=== PATIENT | female | born 1950 | race African-American/Black ===

== ENCOUNTER 2018-09-04 09:46 | Inpatient (IN) | payer OTHER ==
[2018-08-26 11:59] VITALS: BMI 32.7
[2018-09-04] MEDS ORDERED: MIDAZOLAM HCL 2 MG/2 ML SINGLE DOSE VIAL ONE (11:53)
[2018-09-04] MEDS ORDERED: BUPIVACAINE LIPOSOME/PF (EXPAREL) 266 MG/20 ML VIAL ONE (11:53)
[2018-09-04] MEDS ORDERED: VANCOMYCIN 1,000 MG VIAL (RESTRICTED TO ID ONLY) ONE (12:06)
[2018-09-04] MEDS ORDERED: PROPOFOL 20 ML ONE ×2 (14:31)
[2018-09-04] MEDS ORDERED: BENZOIN/ALOE VERA/STORAX/TOLU 58 ML BOTTLE ONE (15:28)
[2018-09-04] MEDS ORDERED: MECLIZINE HCL 25 MG TABLET (FP) PO PRN (16:03)
[2018-09-04] MEDS ORDERED: ALBUTEROL SO4 8 GM HFA INHALER IH PRN (16:03)
[2018-09-04] MEDS ORDERED: MAGNESIUM HYDROX 2400MG/30ML ORAL SUSPENSION 30 ML CUP PO PRN (16:04)
[2018-09-04] MEDS ORDERED: MAG HYDROX/AL HYDROX/SIMETH 30 ML UNIT-DOSE CUP PO PRN (16:04)
--- NOTE | 2018-09-04 16:10 | PN ---
Progress Note (short form) - Note Progress Note: 67F s/p LEFT total knee replacement POD #0. -Pain control. -DVT PPx: -Chemical: ASA 325mg PO BID x 6 weeks. -Mechanical: DEMETRIUS's, SCD's. -Incentive spirometry q15 min. -PT/OT/Rehab, OOB. -WBAT LLE. -Antibiotics: Ancef x 2 post op doses. -f/u post-op trial of void: 11pm MAX. -f/u drain output. -Diet as tolerated. -Keep dressing clean & dry. -Care per medical hospitalist team. -f/u [facility] [place] office 09/13/2018; call for appointment; . -Will follow. Joseph Goyal MD (Orthopaedic Surgery).
--- NOTE | 2018-09-04 16:11 | OP ---
Operative Note - Note: Operative Date: 09/04/18 Pre-Operative Diagnosis: Left knee DJD Operation: Left TKA Implants: [place] Triathlon. Femur - 3. Tibia - 4. Poly - 11mm, TS. Patella - 27mm, symmetric Surgeon: Joseph Goyal Webfed Offset Press Operator: Timothy Goyal Anesthesiologist/DEMURRAGE MAN: Renny Marie Anesthesia: Spinal Specimens Removed: Bone, soft tissue Estimated Blood Loss (mls): 0 Drains & Tubes with Location: 1 x deep HemoVac Fluid Volume Replaced (mls): 1,000 Operative Report Dictated: Yes
[2018-09-04] MEDS ORDERED: LACTATED RINGERS SOLUTION 1,000 ML IV SCH (16:15)
[2018-09-04] MEDS: ACETAMINOPHEN 325 MG TABLET (FP) PO SCH ×2 (17:15→23:48)
[2018-09-04] MEDS ORDERED: oxyCODONE HCL 5 MG TABLET PO PRN (17:16)
[2018-09-04] MEDS ORDERED: predniSONE 20 MG TABLET (UD) PO PRN (17:30)
[2018-09-04] MEDS: oxyCODONE HCL 5 MG TABLET PO PRN ×3 (17:51→23:48)
[2018-09-04] MEDS: ONDANSETRON 4 MG/2 ML VIAL IVPUSH PRN (17:52)
--- NOTE | 2018-09-04 18:19 | OP ---
DATE OF OPERATION: 09/04/2018 SURGEON: Joseph Goyal M.D. HEALTH EDUCATOR: Timothy Goyal M.D. PREOPERATIVE DIAGNOSIS: Tricompartmental osteoarthritis left knee, fixed valgus, fixed flexed knee. POSTOPERATIVE DIAGNOSIS: Tricompartmental osteoarthritis left knee, fixed valgus, fixed flexed knee. OPERATION PERFORMED: Left posterior stabilized total knee arthroplasty cemented ([place]) subvastus approach. ANESTHESIA: Conscious sedation with peripheral block and spinal. TOURNIQUET TIME: 90 minutes DESCRIPTION OF PROCEDURE: Patient correctly identified, brought to the operating room. Left lower extremity was prepped, pre-draped in the routine manner with Betadine scrub solution, wiped off with alcohol, DuraPrep was applied. Imaging was available for intraoperative evaluation. Timeout was called. Preoperative evaluation under anesthesia revealed a fixed valgus knee of about 20 degrees. This was viewed as a fixed flexed deformity 3 degrees. Midline incision utilized. The skin incision was taken through the subcutaneous tissue to the actual quadriceps muscle. The epimysium was identified, and the entire epimysium on the superficial surface of the vastus medialis was dissected off the muscle. At that point the dissection was extended from the medial aspect of the tibial tubercle proximally to the joint line and then coursing medially right down to the medial aspect of linea aspera, the actual vastus was lifted gently off the intramuscular septum and linea aspera itself. This was done under direct vision. Small vessels were diathermized with bipolar Bovie. The superior pouch sleeve was transected, a blunt Hohmann was placed and the patella was shifted laterally. Two towel clip clamps were utilized to hold the patella, and the patella cut was made from quadriceps tendon to patellar ligament, from medial to lateral with the patella held vertically up. The jig was applied for a 27-mm patellar button, and the lug holes were appropriately drilled. Once this had been performed, the tibia was subluxed gently forward. Hohmann retractor was placed posteriorly as well as laterally and medially. The patellar ligament was held out of harm's way. The tibial cut was made with the appropriate extramedullary jig device and once the cut had been made, the measurement was for a size 4 tibial component. The number 4 tibial component enabled us to go ahead and prepare the tibial surface immediately with the appropriate drill and appropriate flanged re-broached cuts into the proximal tibia. The positioning of the implant was in a line in accordance with the tibial tubercle. The femur was attended to by drilling and entering the medullary canal. The saw for the distal jig was inserted and using the Five minutes jig system, the cuts of the bone of the femur cut to receive a size 3 posterior stabilized Triathlon femoral component. Once all bone cuts had been made, flexion/extension gaps were found to be even at 11 mm. The lug holes for the femoral component were inserted. Size 3 femoral component was opted for finally. Trialing revealed excellent positioning of the femur, the tibia, appropriately the patella tracking was normal with a negative thumb test test. It was opted to go ahead with cementing at this point. The bone bed was thoroughly lavaged with pulse lavage. A bone plug had been made and seated into intramedullary canal of the femur. The bone bed was dry. Cementing was in one stage, tibia followed by femur followed by patella. An 11 spacer was placed in the tibial component, and the knee held in extension while the cement cured. All extraneous cement was removed and washed out of the knee. A size 11 TS polyethylene posterior stabilized implant was inserted. The knee was completely stable and the rest of range of motion and tracking of patella was neutral and normal with negative thumb test test. Closure: Quadriceps tendon and medial retinaculum tissue with number 1 Vicryl, subcutaneous 1 and 2-0 Vicryl, skin 3-0 Monocryl with Steri-Strips. Drainage: One 8-inch Hemovac to the medial side of the distal femur. Operation went well, no complications. MD NOA Duran/[id number]
[2018-09-04] MEDS: SENNOSIDES/DOCUSATE COMBO (SENNA PLUS) TABLET (UD) PO SCH (21:22)
[2018-09-04] MEDS: ASPIRIN 325 MG TABLET PO SCH (21:22)
[2018-09-04] MEDS: ATORVASTATIN CA 10 MG TABLET (FP) PO SCH (21:22)
[2018-09-04] MEDS: CEFAZOLIN 2 GM in DEXTROSE 5%-WATER - 50 ML IVPB SCH (21:23)
[2018-09-04] MEDS: MONTELUKAST NA 10 MG TABLET PO SCH (21:23)
[2018-09-05] MEDS: CEFAZOLIN 2 GM in DEXTROSE 5%-WATER - 50 ML IVPB SCH (02:44)
[2018-09-05] MEDS: oxyCODONE HCL 5 MG TABLET PO PRN ×3 (03:30→19:22)
[2018-09-05] MEDS: ACETAMINOPHEN 325 MG TABLET (FP) PO SCH ×4 (05:43→19:11)
[2018-09-05 07:53] LABS: HEMATOCRIT 35.9 % (32.4-45.2); HEMOGLOBIN 11.5 GM/dl (10.7-15.3); MCH 28.3 pg (25.7-33.7); MEAN CELL VOLUME 88.2 fl (80-96); MEAN PLT VOLUME 11.3 fl (7.5-11.1); PLATELET COUNT 167 K/MM3 (134-434); RBC 4.07 M/mm3 (3.60-5.2); RDW 16.5 % (11.6-15.6); WHITE BLOOD COUNT 9.3 K/mm3 (4.0-10.8)
[2018-09-05] MEDS: metFORMIN HCL 500 MG TABLET (FP) PO SCH (08:00)
[2018-09-05 08:24] LABS: ANION GAP 10 MMOL/L (8-16); BLOOD UREA NITROGEN 15 mg/dl (7-18); CALCIUM 9.3 mg/dl (8.5-10); CHLORIDE 103 mmol/L (98-107); CO2 27 mmol/L (21-32); GLUCOSE,RANDOM 133 mg/dl (74-106); POTASSIUM 3.3 mmol/L (3.5-5.1); SODIUM 140 mmol/L (136-145)
--- NOTE | 2018-09-05 08:49 | PN ---
Progress Note (short form) - Note Progress Note: POD #1 s/p LT TKR Alert. Sitting in chair at bedside. Hasn't ambulated with PT yet. Using ice pack as instructed. C/o incisional tenderness. Adequate pain control via meds ordered. Denies n/v/f/c, CP, palpitations, SOB or JOHNSON. Last Vital Signs Temp Pulse Resp BP Pulse Ox 99.3 F 76 19 152/70 96 09/05/18 06:00 09/05/18 06:00 09/05/18 08:05 09/05/18 06:00 09/05/18 08:05 CBC, BMP 09/05/18 07:25 09/05/18 07:25 Hemovac 09/04/18 09/05/18 09/05/18 09/05/18 22:00 00:14 04:29 06:00 Drain 5 40 80 40 Gen: nad LE: RLE unremarkable. Lt knee dressing c/d/i. ice pack. Flexion/Extension. SCDs bilat A/P s/p Lt TKR secondary to DJD - Pain control. -DVT PPx: -Chemical: ASA 81 mg po BID x 6 weeks -Mechanical: DEMETRIUS's, SCD's -Incentive Spirometry. -PT/OT/Rehab, OOB. -WBAT LLE -f/u drain output -replete K -cbc in AM -Discharge planning: f/u [facility] [place] office extrusion engineer for appointment :
--- NOTE | 2018-09-05 08:50 | CONSULT ---
Consultation: REQUESTING PROVIDER: Dr. Goyal CONSULT REQUEST: We have been asked to medically evaluate this patient for post- op management. HISTORY OF PRESENT ILLNESS: This is a 67 year old female with a PMHX of HTN,HDL,DM, asthma, breast CA , s/p bilateral mastectomy and chronic back pain,who was referred by ortho Dr. Goyal for Left knee sx. SHX Rt Hip sx Bilateral mastectomy with reconstruction Bilateral arthroscopic knee sx Bilateral rotated cuff sx REVIEW OF SYSTEMS: CONSTITUTIONAL: Absent: fever, chills, diaphoresis, generalized weakness, malaise, loss of appetite, weight change HEENT: Absent: rhinorrhea, nasal congestion, throat pain, throat swelling, difficulty swallowing, mouth swelling, ear pain, eye pain, visual changes CARDIOVASCULAR: Absent: chest pain, syncope, palpitations, irregular heart rate, lightheadedness , peripheral edema RESPIRATORY: Absent: cough, shortness of breath, dyspnea with exertion, orthopnea, wheezing, stridor, hemoptysis GASTROINTESTINAL: Absent: abdominal pain, abdominal distension, nausea, vomiting, diarrhea, constipation, melena, hematochezia GENITOURINARY: Absent: dysuria, frequency, urgency, hesitancy, hematuria, flank pain, genital pain MUSCULOSKELETAL: Let knee pain Absent: myalgia, arthralgia, joint swelling, back pain, neck pain SKIN: Absent: rash, itching, pallor HEMATOLOGIC/IMMUNOLOGIC: Absent: easy bleeding, easy bruising, lymphadenopathy, frequent infections ENDOCRINE: Absent: unexplained weight gain, unexplained weight loss, heat intolerance, cold intolerance NEUROLOGIC: Absent: headache, focal weakness or paresthesias, dizziness, unsteady gait, seizure, mental status changes, bladder or bowel incontinence PSYCHIATRIC: Absent: anxiety, depression, suicidal or homicidal ideation, hallucinations. PHYSICAL EXAMINATION Vital Signs - 24 hr 09/04/18 09/04/18 09/04/18 10:40 10:42 15:59 Temperature 97.9 F 98.4 F Pulse Rate 65 69 Respiratory 20 17 Rate Blood Pressure 142/83 145/66 O2 Sat by Pulse 98 100 Oximetry (%) 09/04/18 09/04/18 09/04/18 16:00 16:05 16:10 Temperature Pulse Rate 65 67 58 L Respiratory 15 16 14 Rate Blood Pressure 152/68 149/69 150/75 O2 Sat by Pulse 100 100 100 Oximetry (%) 09/04/18 09/04/18 09/04/18 16:15 16:30 16:45 Temperature Pulse Rate 61 59 L 56 L Respiratory 14 12 12 Rate Blood Pressure 162/74 163/74 155/62 O2 Sat by Pulse 100 100 100 Oximetry (%) 09/04/18 09/04/18 09/04/18 17:00 17:15 17:35 Temperature 98.4 F 97.7 F Pulse Rate 61 62 71 Respiratory 12 13 16 Rate Blood Pressure 144/72 151/73 170/66 O2 Sat by Pulse 100 100 Oximetry (%) 09/04/18 09/05/18 09/05/18 22:00 02:00 06:00 Temperature 99.3 F 100.0 F H 99.3 F Pulse Rate 78 91 H 76 Respiratory 19 18 19 Rate Blood Pressure 152/61 165/71 152/70 O2 Sat by Pulse 100 96 Oximetry (%) 09/05/18 08:05 Temperature Pulse Rate Respiratory 19 Rate Blood Pressure O2 Sat by Pulse 96 Oximetry (%) GENERAL: Awake, alert, and fully oriented, in no acute distress, OOB HEAD: Normal with no signs of trauma. EYES: Pupils equal, round and reactive to light, extraocular movements intact, sclera anicteric, conjunctiva clear. No lid lag. EARS, NOSE, THROAT: Ears normal, nares patent, oropharynx clear without exudates. Moist mucous membranes. NECK: Normal range of motion, supple without lymphadenopathy, JVD, or masses. LUNGS: Breath sounds equal, clear to auscultation bilaterally. No wheezes, and no crackles. No accessory muscle use. HEART: Regular rate and rhythm, normal S1 and S2 without murmur, rub or gallop. ABDOMEN: Soft, nontender, not distended, normoactive bowel sounds, no guarding, no rebound, no masses. No hepatomegaly or splenomegaly. MUSCULOSKELETAL: Normal range of motion at all joints. No bony deformities or tenderness. No CVA tenderness. UPPER EXTREMITIES: 2+ pulses, warm, well-perfused. No cyanosis. No clubbing. Cap refill <2 seconds. No peripheral edema. LOWER EXTREMITIES: 2+ pulses, warm, well-perfused. No calf tenderness. No peripheral edema. s/p Left knee sx, dsg and drain intact. NEUROLOGICAL: Cranial nerves II-XII intact. Normal speech. Normal gait. PSYCHIATRIC: Cooperative. Good eye contact. Appropriate mood and affect. SKIN: Warm, dry, normal turgor, no rashes or lesions noted. Laboratory Results - last 24 hr 09/04/18 09/04/18 09/05/18 10:33 16:16 07:25 WBC 9.3 RBC 4.07 Hgb 11.5 Hct 35.9 MCV 88.2 MCH 28.3 MCHC 32.0 RDW 16.5 H Plt Count 167 MPV 11.3 H POC Glucometer 122 129 Active Medications Generic Name Dose Route Start Last Admin Trade Name Freq PRN Reason Stop Dose Admin Acetaminophen 650 mg 09/05/18 00:00 09/05/18 05:43 Tylenol - PO 09/07/18 00:00 650 mg Q6H MAURI Administration Al Hydroxide/Mg Hydroxide 30 ml 09/04/18 16:04 Mylanta Oral Suspension - PO Q4H PRN DYSPEPSIA Albuterol Sulfate 2 puff 09/04/18 16:03 Ventolin Hfa Inhaler - IH Q4H PRN WHEEZING Aspirin 325 mg 09/04/18 22:00 09/04/18 21:22 Asa - PO 325 mg BID MAURI Administration Atorvastatin Calcium 10 mg 09/04/18 22:00 09/04/18 21:22 Lipitor - PO 10 mg HS MAURI Administration Clonidine HCl 0.3 mg 09/05/18 10:00 Catapres Tts Patch - TD Th@1000 MAURI Diltiazem HCl 240 mg 09/05/18 10:00 Cardizem Cd - PO DAILY MAURI HCTZ/Losartan Potassium 2 tab 09/05/18 10:00 Hyzaar - PO DAILY MAURI Hydralazine HCl 100 mg 09/05/18 10:00 Apresoline - PO DAILY MAURI Magnesium Hydroxide 30 ml 09/04/18 16:04 Milk Of Magnesia - PO PRN PRN CONSTIPATION Meclizine HCl 25 mg 09/04/18 16:03 Antivert - PO DAILY PRN VERTIGO Metformin HCl 500 mg 09/05/18 07:00 09/05/18 08:00 Glucophage - PO 500 mg ACBK MAURI Administration Montelukast Sodium 10 mg 09/04/18 22:00 09/04/18 21:23 Singulair - PO 10 mg HS MAURI Administration Nebivolol 5 mg 09/05/18 10:00 Bystolic - PO DAILY MAURI Ondansetron HCl 4 mg 09/04/18 16:04 09/04/18 17:52 Zofran Injection IVPUSH 4 mg Q6H PRN Administration NAUSEA Oxycodone HCl 5 mg 09/04/18 17:16 Roxicodone - PO Q3H PRN PAIN LEVEL 1-5 Oxycodone HCl 10 mg 09/04/18 17:16 09/05/18 03:30 Roxicodone - PO 10 mg Q3H PRN Administration PAIN LEVEL 6-10 Pantoprazole Sodium 40 mg 09/05/18 10:00 Protonix - PO DAILY MAURI Prednisone 20 mg 09/04/18 17:30 Deltasone - PO DAILY PRN ASTHMA Pregabalin 75 mg 09/05/18 10:00 Lyrica - PO DAILY MAURI Senna/Docusate Sodium 1 tablet 09/04/18 22:00 09/04/18 21:22 Pericolace - PO 1 tablet BID MAURI Administration Left knee sx: reviewed ASSESSMENT/PLAN: This is a 67 year old female with a PMHX of HTN,HDL, DM, asthma, breast CA,s/p bilateral mastectomy,s/p for Left knee sx on 09/04/18. *S/P Left knee sx- POD#1 - pain control -management per sx -WBAT LLE - PT eval -encouraged to use Incentive Spirometer - anti-emetics * Hypokalemia - K replaced - will f/u on [employer] in am *HTN - will cont on home meds - will monitor BP closely * DM - FS AC& HS - Lispro sliding scale - on Metformin *Asthma - will cont on Singulair, Albuterol INH PRN * Chronic back pain - will cont on Lyrica * HDL - on Statin * VTE prophylaxis: ASA 325mg BID Dispo: We will continue to follow the patient. Thank you for this consultative opportunity. Visit type - Emergency Visit Emergency Visit: No - New Patient This patient is new to me today: No - Critical Care Critical Care patient: No
[2018-09-05] MEDS ORDERED: POTASSIUM CHLORIDE TABS 20 MEQ TABLET.ER (FP) PO ONE (09:10)
[2018-09-05] MEDS ORDERED: PT OWN MED DRAWER 7, Y5N ONE (09:11)
[2018-09-05] MEDS: PREGABALIN 25 MG CAPSULE PO SCH (09:12)
[2018-09-05] MEDS: ASPIRIN 325 MG TABLET PO SCH ×2 (09:13→21:21)
[2018-09-05] MEDS: PANTOPRAZOLE 40 MG TABLET (FP) PO SCH (09:13)
[2018-09-05] MEDS: SENNOSIDES/DOCUSATE COMBO (SENNA PLUS) TABLET (UD) PO SCH ×2 (09:13→21:21)
[2018-09-05] MEDS: NEBIVOLOL 5 MG TABLET (FP) PO SCH (09:13)
[2018-09-05] MEDS: LOSARTAN 50MG/HCTZ 12.5MG 1 TAB (FP) PO SCH (09:13)
[2018-09-05] MEDS: hydrALAZINE HCL 50 MG TABLET (FP) PO SCH (09:13)
[2018-09-05] MEDS: ONDANSETRON 4 MG/2 ML VIAL IVPUSH PRN (09:59)
[2018-09-05] MEDS ORDERED: PATIENT'S OWN MEDICATION (NON-FORMULARY) (Losartan/Hydrochlorothiazide [Losartan-Hctz 100- PO SCH (10:00)
[2018-09-05] MEDS ORDERED: PATIENT'S OWN MEDICATION (NON-FORMULARY) (Hydralazine Hcl [Hydralazine Hcl] 100 MG) PO SCH (10:00)
[2018-09-05] MEDS ORDERED: cloNIDine-TTS 0.3 MG /24 HRS PATCH.TDWK TD SCH (10:00)
[2018-09-05] MEDS: INSULIN SLIDING SCALE (NOVOLOG) 1 VIAL SQ SCH ×3 (11:57→21:42)
--- NOTE | 2018-09-05 12:02 | PN ---
Progress Note, Physician Chief Complaint: s/p left TKA under spinal anesthesia History of Present Illness: post op day one with peripheral nerve block for post op pain control. - Current Medication List Current Medications: Active Medications Acetaminophen (Tylenol -) 650 mg PO Q6H [facility] Stop: 09/07/18 00:00 Last Admin: 09/05/18 05:43 Dose: 650 mg Al Hydroxide/Mg Hydroxide (Mylanta Oral Suspension -) 30 ml PO Q4H PRN PRN Reason: DYSPEPSIA Albuterol Sulfate (Ventolin Hfa Inhaler -) 2 puff IH Q4H PRN PRN Reason: WHEEZING Aspirin (Asa -) 325 mg PO BID [facility] Last Admin: 09/05/18 09:13 Dose: 325 mg Atorvastatin Calcium (Lipitor -) 10 mg PO [facility] Last Admin: 09/04/18 21:22 Dose: 10 mg Clonidine HCl (Catapres Tts Patch -) 0.3 mg TD Mo@1000 [facility] Diltiazem HCl (Cardizem Cd -) 240 mg PO DAILY [facility] Last Admin: 09/05/18 09:14 Dose: 240 mg HCTZ/Losartan Potassium (Hyzaar -) 2 tab PO DAILY [facility] Last Admin: 09/05/18 09:13 Dose: 2 tab Hydralazine HCl (Apresoline -) 100 mg PO DAILY [facility] Last Admin: 09/05/18 09:13 Dose: 100 mg Insulin Aspart (Novolog Vial Sliding Scale -) 1 vial SQ [facility]; Protocol Last Admin: 09/05/18 11:57 Dose: 2 units Magnesium Hydroxide (Milk Of Magnesia -) 30 ml PO PRN PRN PRN Reason: CONSTIPATION Meclizine HCl (Antivert -) 25 mg PO DAILY PRN PRN Reason: VERTIGO Metformin HCl (Glucophage -) 500 mg PO ACBK [facility] Last Admin: 09/05/18 08:00 Dose: 500 mg Montelukast Sodium (Singulair -) 10 mg PO HS [facility] Last Admin: 09/04/18 21:23 Dose: 10 mg Nebivolol (Bystolic -) 5 mg PO DAILY [facility] Last Admin: 09/05/18 09:13 Dose: 5 mg Ondansetron HCl (Zofran Injection) 4 mg IVPUSH Q6H PRN PRN Reason: NAUSEA Last Admin: 09/05/18 09:59 Dose: 4 mg Oxycodone HCl (Roxicodone -) 5 mg PO Q3H PRN PRN Reason: PAIN LEVEL 1-5 Oxycodone HCl (Roxicodone -) 10 mg PO Q3H PRN PRN Reason: PAIN LEVEL 6-10 Last Admin: 09/05/18 09:13 Dose: 10 mg Pantoprazole Sodium (Protonix -) 40 mg PO DAILY [facility] Last Admin: 09/05/18 09:13 Dose: 40 mg Prednisone (Deltasone -) 20 mg PO DAILY PRN PRN Reason: ASTHMA Pregabalin (Lyrica -) 75 mg PO DAILY [facility] Last Admin: 09/05/18 09:12 Dose: 75 mg Senna/Docusate Sodium (Pericolace -) 1 tablet PO BID [facility] Last Admin: 09/05/18 09:13 Dose: 1 tablet - Objective Vital Signs: Vital Signs Temperature 98.0 F 09/05/18 10:00 Pulse Rate 77 09/05/18 10:00 Respiratory Rate 19 09/05/18 10:00 Blood Pressure 176/77 H 09/05/18 10:00 O2 Sat by Pulse Oximetry (%) 95 09/05/18 10:00 Constitutional: Yes: Well Nourished Cardiovascular: Yes: WNL Respiratory: Yes: WNL Gastrointestinal: Yes: Vomiting Labs: CBC, BMP 09/05/18 07:25 09/05/18 07:25 Assessment/Plan Patient is nauseated and vomiting. Pain is 10/10, does not want to take more opioids because of nausea and drowsiness. Will order other antiemetics, and ofirmev for adjuvant analgesia. Otherwise, dept of anesthesia will sign off care at this time
[2018-09-05] MEDS ORDERED: DEXAMETHASONE SOD PHOSPHATE 4 MG/1 ML VIAL IVPUSH ONE (12:20)
[2018-09-05] MEDS ORDERED: ACETAMINOPHEN 1000 MG/100 ML VIAL (NON FORMULARY) IVPB ONE (12:20)
[2018-09-05] MEDS ORDERED: PROMETHAZINE HCL 25 MG/1 ML VIAL IVPB ONE (14:15)
[2018-09-05] MEDS: ATORVASTATIN CA 10 MG TABLET (FP) PO SCH (21:21)
[2018-09-05] MEDS: MONTELUKAST NA 10 MG TABLET PO SCH (21:21)
[2018-09-06] MEDS: ACETAMINOPHEN 325 MG TABLET (FP) PO SCH ×3 (00:11→14:18)
[2018-09-06] MEDS: metFORMIN HCL 500 MG TABLET (FP) PO SCH (06:37)
[2018-09-06] MEDS: INSULIN SLIDING SCALE (NOVOLOG) 1 VIAL SQ SCH ×2 (06:38→14:17)
[2018-09-06] MEDS: oxyCODONE HCL 5 MG TABLET PO PRN ×3 (06:39→12:30)
--- NOTE | 2018-09-06 08:07 | DS ---
Physical Exam: SUBJECTIVE: Patient seen and examined this am and has no complaints of CP, SOB. OOB and ambulating with PT. Tolerating a diet. OBJECTIVE: Vital Signs Temperature 98.9 F 09/06/18 06:00 Pulse Rate 67 09/06/18 06:00 Respiratory Rate 18 09/06/18 06:00 Blood Pressure 136/53 L 09/06/18 06:00 O2 Sat by Pulse Oximetry (%) 99 09/06/18 06:00 WILD: 150 ml/40 and 60ml-serosangrenous PHYSICAL EXAM GENERAL: The patient is awake, alert, and fully oriented, in no acute distress. LUNGS: Breath sounds equal, clear to auscultation bilaterally. HEART: Regular rate and rhythm. ABDOMEN: Soft, nontender, nondistended. EXTREMITIES: no calf tenderness of swelling noted b/l. NEUROLOGICAL: Normal speech, gait not observed. 5/5 dorsi/plantar flexion right leg. 4/5 dorsi/plantar flexion left leg. Dressing c/d/i to the left leg. Drain removed today with tip intact. Reapplied the solis wrap LABS CBC,CMP WBC 9.3 K/mm3 (4.0-10.8) 09/05/18 07:25 RBC 4.07 M/mm3 (3.60-5.2) 09/05/18 07:25 Hgb 11.5 GM/dl (10.7-15.3) 09/05/18 07:25 Hct 35.9 % (32.4-45.2) 09/05/18 07:25 MCV 88.2 fl (80-96) 09/05/18 07:25 MCH 28.3 pg (25.7-33.7) 09/05/18 07:25 MCHC 32.0 g/dl (32.0-36.0) 09/05/18 07:25 RDW 16.5 % (11.6-15.6) H 09/05/18 07:25 Plt Count 167 K/MM3 (134-434) 09/05/18 07:25 MPV 11.3 fl (7.5-11.1) H 09/05/18 07:25 Sodium 140 mmol/L (136-145) 09/05/18 07:25 Potassium 3.3 mmol/L (3.5-5.1) L 09/05/18 07:25 Chloride 103 mmol/L (98-107) 09/05/18 07:25 Carbon Dioxide 27 mmol/L (21-32) 09/05/18 07:25 Anion Gap 10 MMOL/L (8-16) 09/05/18 07:25 BUN 15 mg/dl (7-18) 09/05/18 07:25 Creatinine 1.0 mg/dl (0.55-1.3) 09/05/18 07:25 Creat Clearance w eGFR 54.97 (>60) 09/05/18 07:25 POC Glucometer 148 UNITS (80-120) 09/06/18 06:24 Random Glucose 133 mg/dl (74-106) H 09/05/18 07:25 Calcium 9.3 mg/dl (8.5-10) 09/05/18 07:25 HOSPITAL COURSE: The patient was admitted to the Med-Surg Unit after an elective repair of their osteoarthritis. Now, s/p Left TKR. An xray was obtained in the OR and confirmed hardware placement in good position with no fractures or dislocations. Narcotic and non-narcotic pain management control was achieved with an oral and IV approach. POD #2, the surgical drain was removed fully intact and without incident. Kristin-operative IV ABX were administered. DVT prophylaxis was achieved with SCDs and early ambulation. The patient ambulated with Physical Therapy and no services and home services were recommended upon discharge. Narcotic scripts and or muscle relaxants were checked with [place] [employer] prior to escibe. The discharge instructions and an oral pain management plan were reviewed with the patient. All questions answered. Above plan discussed with Dr. Goyal and agreed. Date of Admission:09/04/18 Date of Discharge: 09/06/18 Minutes to complete discharge: 20 Visit type - Case Type Case Type: Scheduled - Emergency Emergency Visit: No - New patient This patient is new to me today: Yes Date on this admission: 09/06/18
[2018-09-06 08:18] LABS: BASO % 0.2 % (0-2.0); EOS % 0.1 % (0-4.5); HEMATOCRIT 33.1 % (32.4-45.2); HEMOGLOBIN 10.8 GM/dl (10.7-15.3); LYMPH % 10.8 % (8-40); MCH 28.9 pg (25.7-33.7); MCHC 32.7 g/dl (32.0-36.0); MEAN CELL VOLUME 88.4 fl (80-96); MEAN PLT VOLUME 11.3 fl (7.5-11.1); MONO % 15.7 % (3.8-10.2); NEUT % 73.2 % (42.8-82.8); PLATELET COUNT 157 K/MM3 (134-434); RBC 3.74 M/mm3 (3.60-5.2); WHITE BLOOD COUNT 13.7 K/mm3 (4.0-10.8)
[2018-09-06 08:25] LABS: ANION GAP 9 MMOL/L (8-16); BLOOD UREA NITROGEN 17 mg/dl (7-18); CALCIUM 9.1 mg/dl (8.5-10); CHLORIDE 104 mmol/L (98-107); CO2 26 mmol/L (21-32); GLUCOSE,RANDOM 139 mg/dl (74-106); POTASSIUM 3.6 mmol/L (3.5-5.1); SODIUM 139 mmol/L (136-145)
[2018-09-06] MEDS: PREGABALIN 25 MG CAPSULE PO SCH (09:45)
[2018-09-06] MEDS: PANTOPRAZOLE 40 MG TABLET (FP) PO SCH (09:45)
[2018-09-06] MEDS: hydrALAZINE HCL 50 MG TABLET (FP) PO SCH (09:46)
[2018-09-06] MEDS: LOSARTAN 50MG/HCTZ 12.5MG 1 TAB (FP) PO SCH (09:48)
[2018-09-06] MEDS: ASPIRIN 325 MG TABLET PO SCH (09:48)
[2018-09-06] MEDS: SENNOSIDES/DOCUSATE COMBO (SENNA PLUS) TABLET (UD) PO SCH (09:48)
[2018-09-06] MEDS: NEBIVOLOL 5 MG TABLET (FP) PO SCH (10:00)
--- NOTE | 2018-09-06 12:41 | PN ---
Progress Note (short form) - Note Progress Note: 67F s/p LEFT total knee replacement POD #1. Pain well controlled. No acute events overnight. Pt. denies overnight history of chest pain, shortness of breath, nausea, vomiting, chills and sweats. (+) Voiding, (+) Flatus, (-) BM. All labs and vitals reviewed. PE: AAO x 3, NAD. L Knee: Dressing C/D/I. Drain intact & in place. NVI distally. 67F s/p LEFT total knee replacement POD #1. -Pain control. -DVT PPx: -Chemical: ASA 325mg PO BID x 6 weeks. -Mechanical: DEMETRIUS's, SCD's. -Incentive spirometry q15 min. -PT/OT/Rehab, OOB. -WBAT LLE. -f/u drain output. -Diet as tolerated. -Keep dressing clean & dry. -Care per medical hospitalist team. -f/u [facility] [place] office 09/13/2018; call for appointment; [phone]. -Will follow. Joseph Goyal MD (Orthopaedic Surgery).
--- NOTE | 2018-09-06 13:53 | DS ---
"Physical Exam: SUBJECTIVE: Patient seen and examined, pt reports feeling better, reports nausea improved, no vomiting OBJECTIVE: Vital Signs Period Temp Pulse Resp BP Sys/Loo Pulse Ox Last 24 Hr 97.7 F-98.9 F 61-85 18-19 136-154/53-67 96-99 PHYSICAL EXAM GENERAL: The patient is awake, alert, and fully oriented, in no acute distress. HEAD: Normal with no signs of trauma. EYES: PERRL, extraocular movements intact, sclera anicteric, conjunctiva clear. ENT: Ears normal, nares patent, oropharynx clear without exudates, moist mucous membranes. NECK: Trachea midline, full range of motion, supple. LUNGS: Breath sounds equal, clear to auscultation bilaterally, no wheezes, no crackles, no accessory muscle use. HEART: Regular rate and rhythm, S1, S2 without murmur, rub or gallop. ABDOMEN: Soft, nontender, nondistended, normoactive bowel sounds, no guarding, no rebound, no hepatosplenomegaly, no masses. EXTREMITIES: 2+ pulses, warm, well-perfused, s/p Left knee replacement, dsg intact NEUROLOGICAL: Cranial nerves II through XII grossly intact. Normal speech, gait not observed. PSYCH: Normal mood, normal affect. SKIN: Warm, dry, normal turgor, no rashes or lesions noted. LABS Laboratory Results - last 24 hr 09/05/18 09/05/18 09/06/18 16:45 21:24 06:24 WBC RBC Hgb Hct MCV MCH MCHC RDW Plt Count MPV Absolute Neuts (auto) Neutrophils % Lymphocytes % Monocytes % Eosinophils % Basophils % Sodium Potassium Chloride Carbon Dioxide Anion Gap BUN Creatinine Creat Clearance w eGFR POC Glucometer 180 226 148 Random Glucose Calcium 09/06/18 09/06/18 07:10 07:10 WBC 13.7 H RBC 3.74 Hgb 10.8 Hct 33.1 MCV 88.4 MCH 28.9 MCHC 32.7 RDW 16.0 H Plt Count 157 MPV 11.3 H Absolute Neuts (auto) 10.1 Neutrophils % 73.2 Lymphocytes % 10.8 Monocytes % 15.7 H Eosinophils % 0.1 Basophils % 0.2 Sodium 139 Potassium 3.6 Chloride 104 Carbon Dioxide 26 Anion Gap 9 BUN 17 Creatinine 1.0 Creat Clearance w eGFR 54.97 POC Glucometer Random Glucose 139 H Calcium 9.1 HOSPITAL COURSE: This is a 67 year old female with a PMHX of HTN,HDL, DM, asthma, breast CA,s/p bilateral mastectomy,s/p for Left knee sx on 09/04/[address] Goyal, rec WBAT LLE, for VTE will continue on ASA 325mg BID. PT eval done, recommend home with HomeCare services. Encouraged to use Incentive Spirometry, will cont pain meds. * Hypokalemia , K replaced repeat K with in normal limit. *HTN: BP stable, will cont on home meds. * DM: BS stable, will continue on home Metformin, rec to monitor BS athome and resume on consistent carbohydrate diet. *Asthma: Stable,will cont on Singulair, Albuterol INH PRN * Chronic back pain :Will cont on Lyrica and Oxycontin. * HDL: on Statin Minutes to complete discharge: 40 Discharge Summary Reason For Visit: Unilateral/ Primary Osteoarthritis of Knee Condition: Stable - Instructions Diet, Activity, Other Instructions: Dr. Goyal Discharge Instructions for Knee Replacement Post Operative Instructions Physical activity Physical Therapist will come to your home for the first 5 days. You will be set up with outpatient PT at your first post-operative visit. Use assistive devices for ambulation at all times. Weight bearing as tolerated on your surgical side. Do not put pillow under knee. May put pillow under heel. Wound care Leave your surgical dressing in place. Do not change the dressing until seen by your surgeon in the office. No baths or showers. Do not submerge your incision. Do not apply any ointments or lotions to your incision. Please call the office if your dressing is soiled/dirty or is falling off. Apply Graduated Compression Stockings (TEDS) to both lower extremities - remove daily for hygiene ONLY. Diet There are no dietary restrictions. Eat healthy, high-fiber foods. Drink 6 to 8 glasses of liquid each day. This will assist in keeping your bowels are regular. Pain management Any pain prescription medication ordered should be taken as prescribed for moderate to severe pain. Do not take additional Tylenol while taking Percocet. [place] [employer] O[employer]ATOR Checked prior too escribe of narcotics for pain management This report was requested by: Brennan Tracy | Reference #: [id number] 08/15/2018 Oxycodone-acetaminophen 10-325 mg. 90 tablets by Alondra Garzon (RPA- C) Take Aspirin 325 mg two times a day for a total of 6 weeks to prevent blood clots. Call Dr. Goyal for any of the following: Severe pain not relieved by medication Fever of 101 or higher Excessive bleeding or drainage on dressing Inability to urinate If you experience chest pain or shortness of breath, please seek emergency care immediately. Please call the office at to confirm your post-op appointment for the week following surgery. Followup CBC with Dr. Goyal or PMD Dr. Durant. Referrals: Tamera Durant [Non Staff, Medical] - 2 Weeks Disposition: HOME - Home Medications Comprehensive Discharge Medication List: Ambulatory Orders Albuterol Sulfate Inhaler - [Ventolin HFA Inhaler -] 1 - 2 inh PO Q4H PRN Atorvastatin Ca [Lipitor] 10 mg PO HS 08/22/18 Clonidine Patch [Catapres Tts Patch -] 1 patch ASDIR 08/22/18 Diltiazem HCl [Diltiazem 24Hr Cd] 240 mg PO DAILY 08/22/18 Hydralazine HCl 100 mg PO DAILY 08/22/18 Losartan/Hydrochlorothiazide [Losartan-Hctz 100-25 mg Tab] 1 each PO DAILY 08/22 Meclizine HCl 25 mg PO DAILY PRN 08/22/18 Metformin HCl [Glucophage] 500 mg PO DAILY 08/22/18 Montelukast Sodium [Singulair] 10 mg PO DAILY 08/22/18 Nebivolol HCl [Bystolic] 5 mg PO DAILY 08/22/18 Oxycodone HCl/Acetaminophen [Oxycodone-Acetaminophen 10-325] 1 each PO Q6H PRN 08/22/18 Prednisone [Deltasone] 20 mg PO DAILY PRN 08/22/18 Pregabalin [Lyrica] 75 mg PO DAILY 08/22/18 Acetaminophen [Tylenol .Regular Strength -] 650 mg PO Q6H tablet 09/06/18 Aspirin [ASA -] 325 mg PO BID tablet 09/06/18 Magnesium Hydrox 2400MG/30Ml [Milk of Magnesia -] 30 ml PO PRN PRN cup Pantoprazole Sodium [Protonix -] 40 mg PO DAILY tablet.ec 09/06/18 This patient is new to me today: No Emergency Visit: No Critical Care patient: No - Discharge Referral Referred to [facility] No"
[2018-09-06 14:11] VITALS: BP 140/60; PULSE 63; TEMP 98.6
--- NOTE | 2018-09-06 17:09 | PATH ---
Surgical Pathology Report Patient Name: ANTHONY LOMAS Med. Rec. #: [id number] /Age/Gender: 1950 (Age: 67) / F Account: [id number] Location: [facility] MED-SURG Taken: 09/04/2018 Received: 09/04/2018 Reported: 09/06/2018 Physicians: Joseph Goyal M.D. Specimen(s) Received LEFT KNEE BONE Clinical History Unilateral/primary osteoarthritis left knee Final Diagnosis KNEE BONE, LEFT, TOTAL KNEE REPLACEMENT: DEGENERATIVE JOINT DISEASE. Electronically Signed Catalina Bowers M.D. Gross Description Received in formalin labeled "left knee bone," is a 12.0 x 10.0 x 2.0 cm aggregate of multiple portions of bone and soft tissue. The tibial plateau measures 7.7 x 5.1 x 2.0 cm. There is a 2.7 cm in greatest dimension area of eburnation present. The remaining articular surfaces are kirkland-yellow and focally granular. The underlying trabecular bone is yellow and hard. Behavioral Health Case Manager sections are submitted in one cassette, following decalcification. 09/05/2018 [facility]09/05/2018
[2018-09-09] MEDS ORDERED: cloNIDine-TTS 0.3 MG /24 HRS PATCH.TDWK TD SCH (10:00)
== END 2018-09-06 15:50 | disposition home or self-care (01) | DRG 470 ==
LOC: FM/S 09:46 → EDSTATUS 13:30 → FM/S 17:32
PROVIDERS: ADMIT Orthopaedic Surgery Orthopaedic Surgery of the Spine; ATTEND Nurse Practitioner Family
PROC: 0SRD0J9 Replacement of Left Knee Joint with Synthetic Substitute, Cemented, Open Approach (ICD-10-PCS; principal; 2018-09-04 13:22)
DX: M17.12 Unilateral primary osteoarthritis, left knee (principal); I10 Essential (primary) hypertension; E78.5 Hyperlipidemia, unspecified; E11.9 Type 2 diabetes mellitus without complications; J45.909 Unspecified asthma, uncomplicated; Z85.3 Personal history of malignant neoplasm of breast; M54.5 Low back pain; E87.6 Hypokalemia
CPT/HCPCS: 36415; 73560-TC-LT-FY; 80048; 82962; 85025; 85027; 88304-TC; 88311-TC; 94760; 97116-GP; 97162-GP; J0131